=== PATIENT | male | born 1960 | race Hispanic/Latino ===

== ENCOUNTER → 2022-05-16 | Outpatient (CLI) | payer OTHER ==
[~2022-05-16] MED LIST: AMLO-257 PO; CEFD300C3 PO; HYDR-3421 PO; METF-444 PO; OLME-9 PO; PANT40TA55 PO; RIVA20TA PO; TRAM50TA4 PO
== END | disposition home or self-care (01) ==
LOC: OIH 10:19
PROVIDERS: ATTEND Internal Medicine
DX: Z13.6 Encounter for screening for cardiovascular disorders (principal); R93.1 Abnormal findings on diagnostic imaging of heart and coronary circulation
CPT/HCPCS: 75571